=== PATIENT | female | born 1940 | race Caucasian/White ===

== ENCOUNTER 2016-11-15 09:11 | Observation (INO) ==
[2016-11-15] MEDS ORDERED: Aspirin 81 MG TAB.CHEW PO ONE (09:33)
--- NOTE | 2016-11-15 09:47 | Emergency Department Note ---
Disposition Clinical Impression: Chest pain Disposition: Admitted As Inpatient Chest Pain HPI - General Chief Complaint: ED Chest Pain Stated Complaint: Chest Pain Time Seen by Provider: 11/15/16 09:17 Vital Signs Reviewed: Yes Nursing Notes Reviewed: Yes - History of Present Illness HPI Narrative: Mrs. Colon, a 75-year-old female, presents from home by POV with chief complaint of chest pain and left axillary pain. Patient is status post CABG in 2003. Both pains onset Saturday and intermittent. Last seen in unknown duration and spontaneously resolving. Patient states she has tenderness in her left axilla which is reproducible palpation. She also has a substernal chest heaviness onset Saturday and intermittant with radiation to her back, associated with nausea. No change with exertion. Her chest pain has fully resolves and she is chest pain-free on presentation. She is concerned given her cardiac history. Her previous TX which resulted in CABG she had similar chest pressure with radiation to her left arm. Patient's last stress test and echo was last year reportedly normal per patient. Patient is only anti-platelet is aspirin 81 mg by mouth daily. Patient denies dyspnea, diaphoresis, palpitations, weakness, numbness, tingling , vertigo. PMH: HTN, HLD, CABG 1997 and 2003. Service Delivery Supervisor: Dr. Trujillo. Echo 06/24/2015: LVEF 40-45%. Severity scale (1-10): 0 - Related Data Home Medications Medication Instructions Recorded Confirmed Amlodipine [Norvasc] 5 mg PO DAILY 11/15/16 11/15/16 Aspirin 81 mg PO DAILY 11/15/16 11/15/16 Calcium Carbonate/Vitamin D3 1 each PO DAILY 11/15/16 11/15/16 [Calcium 500+D Tablet Chew] Furosemide [Lasix] 40 mg PO DAILY 11/15/16 11/15/16 Losartan [Cozaar] 25 mg PO DAILY 11/15/16 11/15/16 Metoprolol [Lopressor] 100 mg PO BID 11/15/16 11/15/16 [place]-3/Dha/Epa/Fish Oil [Fish Oil 1 each PO DAILY 11/15/16 11/15/16 1,000 mg Softgel] Omeprazole 20 mg PO DAILY 11/15/16 11/15/16 Simvastatin [Zocor] 20 mg PO HS 11/15/16 11/15/16 Allergies Allergy/AdvReac Type Severity Reaction Status Date / Time No Known Allergies Allergy Verified 11/15/16 09:19 All systems ED: reviewed and negative except as stated. Constitutional: Denies: fever, chills, weakness Eyes: Denies: vision change ENT ED: Reports: congestion Cardiovascular: Reports: chest pain. Denies: palpitations, dyspnea on exertion , orthopnea, edema, syncope Respiratory: Denies: cough, dyspnea, wheezes Gastrointestinal: Denies: abdominal pain, nausea, vomiting, diarrhea, constipation Genitourinary: Denies: urgency, dysuria, frequency Musculoskeletal: Denies: back pain, neck pain Neurological: Denies: headache, weakness, numbness, paresthesias, confusion, vertigo Hematological/Lymphatic: Denies: easy bleeding, easy bruising Chest Pain PMH - Past Medical History Medical history: Reports: GERD, hyperlipidemia, myocardial infarction Psychiatric history: Reports: no psych history REAL ESTATE PROCESSOR history: Reports: no REAL ESTATE PROCESSOR history - Social History Smoking Status: Never smoker Alcohol use: Reports: none Drug use: Reports: none Physical Exam General: Patient is alert, oriented, and in no acute distress. HEENT: No facial asymmetry. Head is normocephalic and atraumatic. Trachea midline. Oral mucosa moist. Cardiovascular: Heart regular rate and rhythm without clicks, rubs, gallops, or murmurs. No JVD. PMI nondisplaced. Respiratory: Symmetric chest rise with good respiratory effort. Bilateral breath sounds are clear without wheezing, crackles, or rhonchi. Abdomen: Bowel sounds present normoactive x-4 quadrants. Abdomen is soft, nondistended, and nontender. No organomegaly noted. Musculoskeletal: No parasternal reproducible pain. Pain along the course of the left pectoralis minor which reproduces the patient's axillary pain. Psych: Patient's affect is appropriate for situation. Course Course Narrative: Clinically believe there is a musculoskeletal cause of the patient's left axillary pain is exactly reproduced to palpation along the pectoralis minor. Of greater concern, is the patient's substernal chest heaviness radiation to her back. Patient is unsure if the nausea because of the left axillary pain or the substernal chest heaviness. Patient's heart scores 5. Patient's VENANCIO score is 5. Patient's troponin is negative. Blood work otherwise unremarkable. Patient remains high risk given her cardiac history as well as comorbidities. Spoke with the on-call hospitalist, Dr. Syed, who agrees to accept the patient for chest pain with ACS rule out. Vital Signs Temperature 97.4 F L 11/15/16 09:19 Pulse Rate 59 11/15/16 09:19 Respiratory Rate 24 11/15/16 09:19 Blood Pressure 164/68 11/15/16 09:19 O2 Sat by Pulse Oximetry 97 11/15/16 09:19 Temperature 97.4 F L 11/15/16 09:19 Pulse Rate 54 11/15/16 10:07 Respiratory Rate 22 11/15/16 11:04 Blood Pressure 165/65 11/15/16 11:04 O2 Sat by Pulse Oximetry 96 11/15/16 10:07 Oxygen Delivery Oxygen Delivery Room Air Chest Pain - Medical Records Medical records reviewed: Yes I reviewed the patient's medical records. - Lab Data Lab results reviewed: Yes I reviewed the patient's lab results. Result diagrams: 11/15/16 10:00 11/15/16 10:00 Lab Results 11/15/16 11/15/16 11/15/16 Range/Units 10:00 10:00 10:00 WBC 7.8 (4.3-11.1) K/mcL RBC 4.12 (3.82-4.97) M/mcL Hgb 13.0 (11.5-15.4) g/dL Hct 39.2 (35.3-44.9) % MCV 95.1 (83.0-100.0) fL MCH 31.6 (28.0-33.3) pg MCHC 33.2 (31.6-35.5) g/dL RDW 12.8 (11.5-14.5) % Plt Count 159 (140-400) K/mcL MPV 10.6 (9.4-12.4) fL Immature Gran % 0.3 (0-4) % Seg Neutrophils % 69.2 % Lymphocytes % 22.5 % Monocytes % 6.8 % Eosinophils % 0.9 % Basophils % 0.3 % Neutrophils # 5.4 (1.6-8.9) K/mcL Lymphocytes # 1.7 (0.6-4.6) K/mcL Monocytes # 0.5 (0.0-1.3) K/mcL Eosinophils # 0.1 (0.0-0.6) K/mcL Basophils # 0.0 (0.0-0.2) K/mcL Sodium 141 (136-145) mEq/L Potassium 4.1 (3.5-4.5) mEq/L Chloride 107 (98-109) mEq/L Carbon Dioxide 26 (19-29) mEq/L BUN 22 H (7-20) mg/dL Creatinine 0.93 (0.57-1.11) mg/dL Est GFR ( Amer) > 60 (> 60) Est GFR (Non-Af Amer) 59 L (> 60) BUN/Creatinine Ratio 24 (6-26) Glucose 135 H (70-99) mg/dL Calculated Osmolality 297 (280-300) Calcium 9.1 (8.6-10.8) mg/dL Troponin I 0.01 (0-0.03) ng/mL - Radiology Data Radiology results reviewed: Yes I reviewed the patient's radiology results. Chest X-Ray 11/15/16 09:33 IMPRESSION: No acute cardiopulmonary disease. D/ / Ferdinand Corona MD / Ferdinand Corona MD Interpreting Provider: Ferdinand Corona MD - EKG Data EKG attestation: Yes I reviewed and interpreted this EKG. EKG results narrative: EKG dated 11/15/16 interpreted as sinus bradycardia with a rate of 59. Normal intervals with ID 183, QRS 159, QT/QTc 450/448. Left axis. Left bundle branch block. T-wave inversions in aVL, V5, and V6. Otherwise nonspecific ST-T changes. Compared to previous dated 05/23/2004 showing no T-wave inversions in aVL, V5, V6. Old EKG does show T-wave inversions in V1 through 4. Compared to previous EKG 28 August 2015 shows no acute ischemic changes. Heart Score - Score History: Slightly Suspicious EKG: Non Specific repolarisation Disturbance Age: Greater than 65 Risk Factors: Equal/Greater than 3 risk factor or history of atherosclerotic disease Troponin: Less than normal limit HEART Score Total: 5 Attestation Statement - Attestation Attestation: I examined this patient and my medical decision-making was reviewed with the CIGARETTE TESTER/PA/Advanced Practice Nurse/Resident Physician. I agree with the documented findings, disposition and treatment plan as described except to the extent set forth below. 75-year-old female presents the ED because of chest pain. She has remote history of coronary disease and had CABG in 2003. She now complains of several days of recurring substernal chest tightness with radiation to her left scapula and associated nausea and diaphoresis. No fevers, chills or rigors. No specific exertional provocation of symptoms. She does note generalized exertional limitations with extreme fatigue with any activity over the past several weeks. She does complain of slight nonproductive cough. No orthopnea. No worsening of her baseline extremity swelling. Pleasant elderly female in no apparent distress. She is talkative and interactive. Oropharynx is clear and mucous membranes moist. Neck supple. Chest clear to auscultation bilateral. Cardiac exam regular chest wall nontender. Abdomen soft nondistended and nontender to palpation extremities warm and dry with bilateral 1+ pitting edema. EKG with left bundle branch block similar to previous tracing. Initial emergency room workup was unremarkable. Case discussed with on-call hospitalist who will admit for further workup.
[2016-11-15 10:12] LABS: Basophils % 0.3 %; Eosinophils # 0.1 K/mcL (0.0-0.6); Eosinophils % 0.9 %; Hematocrit 39.2 % (35.3-44.9); Immature Granulocytes % 0.3 % (0-4); Lymphocytes # 1.7 K/mcL (0.6-4.6); Lymphocytes % 22.5 %; Mean Corpuscular HGB Conc 33.2 g/dL (31.6-35.5); Mean Corpuscular Hemoglobin 31.6 pg (28.0-33.3); Mean Corpuscular Volume 95.1 fL (83.0-100.0); Mean Platelet Volume 10.6 fL (9.4-12.4); Monocytes # 0.5 K/mcL (0.0-1.3); Monocytes % 6.8 %; Neutrophils # 5.4 K/mcL (1.6-8.9); Platelet Count 159 K/mcL (140-400); Red Blood Count 4.12 M/mcL (3.82-4.97); Red Cell Distribution Width 12.8 % (11.5-14.5); Segmented Neutrophils % 69.2 %
[2016-11-15 10:21] LABS: BUN/Creatinine Ratio 24 (6-26); Blood Urea Nitrogen 22 mg/dL (7-20); Calcium 9.1 mg/dL (8.6-10.8); Carbon Dioxide 26 mEq/L (19-29); Chloride 107 mEq/L (98-109); Glucose 135 mg/dL (70-99); Osmolality,Calculated 297 (280-300); Potassium 4.1 mEq/L (3.5-4.5); Sodium 141 mEq/L (136-145); eGFR For African Americans > 60 (> 60); eGFR For Non-African Americans 59 (> 60)
[2016-11-15] MEDS ORDERED: Naloxone 0.4 MG/ML INJ IVP PRN (10:29)
--- NOTE | 2016-11-15 10:48 | Internal Med History&Physical ---
Date of Encounter: 11/15/16 Time of Encounter: 10:43 Assessment and Plan (1) Chest pain Current visit: Yes Status: Acute Chest pain: Cardiac history: Echocardiogram: June 2015: Ejection fraction 40-45%, moderate mitral regurgitation. Stress test: November 2014: No reversible ischemia. Gaited ejection fraction 45% Cardiac catheterization : 2003 CABG: Initial 1997, nonfunctional [place]: 2003 Plan -Admitted as observation. -Diabetic diet. -ASA/BB/Statin - Echocardiogram -Pain control with morphine -We will resume home medication -If echocardiogram is normal then please consider stress test -If echocardiogram is abnormal and his consider cardiology evaluation Qualifiers: Chest pain type: chest pain on breathing Qualified Code(s): R07.1 - Chest pain on breathing (2) Prediabetes Current visit: Yes Status: Acute Laboratory data patient's last hemoglobin A1c was 6.2. We will observe her blood sugar. We will not start any medication at this point. (3) Hypertension Current visit: Yes Status: Acute Patient is known to have hypertension. We will resume her home medications. Qualifiers: Hypertension type: essential hypertension Qualified Code(s): I10 - Essential (primary) hypertension (4) Chronic kidney disease (CKD) Current visit: Yes Status: Acute She is a moderate stage III chronic kidney disease. We will have a close observation. Qualifiers: Chronic kidney disease stage: stage 3 (moderate) Qualified Code(s): N18.3 - Chronic kidney disease, stage 3 (moderate) (5) DVT prophylaxis Current visit: Yes Status: Acute Heparin Medical decision making: This patient has a [id number] risk of worsening cardiac function in spite of being on appropriate treatment. Internal Medicine - H&P: HPI Chief complaint: Chest pain Admitted From: Emergency Dept Plans for Post Hospital Care: Home History of present illness: PCP: [facility] : Dr Trujillo. Brief past medical history: Patient is a coronary artery disease, prediabetes, GERD, CKD, cardiomyopathy, systolic CHF, previous CABG History of present illness: The patient has ongoing chest pain for more than 2 weeks. Patient tried home remedies. It did not help her. Patient was complaining that in as 48 hours of chest pain was getting worse. Patient has a chest pain and left precordial region. It is nonradiating, localized, persistent, sharp, associated with deep breathing and reviewed by rest. Patient also complains of left shoulder pain. Patient denies nausea, vomiting, abdominal pain, diarrhea or dizziness. The persistent chest pain brought her to the emergency department for further workup Emergency room workup: Patient was evaluated in the emergency room. She underwent basic workup. Her troponins were negative. Her EKG shows left bundle branch block. This is not a new left bundle branch block. Patient has a ongoing persistent pain in the emergency room. Reason for admission: Chest pain in a CAD patient to rule out ACS Family history: Noncontributory Past Med Surg Social Fam HX - Past Medical History Medical history: GERD, hyperlipidemia, myocardial infarction Psychiatric history: no psych history - Social History Smoking Status: Never smoker Smokeless Tobacco Status: No Alcohol use: none Drug use: none Internal Medicine - H&P: Meds Amlodipine [Norvasc] 5 mg PO DAILY 11/15/16 [History] Aspirin 81 mg PO DAILY 11/15/16 [History] Calcium Carbonate/Vitamin D3 [Calcium 500+D Tablet Chew] 1 each PO DAILY [History] Furosemide [Lasix] 40 mg PO DAILY 11/15/16 [History] Losartan [Cozaar] 25 mg PO DAILY 11/15/16 [History] Metoprolol [Lopressor] 100 mg PO BID 11/15/16 [History] [place]-3/Dha/Epa/Fish Oil [Fish Oil 1,000 mg Softgel] 1 each PO DAILY 11/15/16 [ History] Omeprazole 20 mg PO DAILY 11/15/16 [History] Simvastatin [Zocor] 20 mg PO HS 11/15/16 [History] Allergies No Known Allergies Allergy (Verified 11/15/16 09:19) All Systems PM: A 10-system review of systems was performed and is negative for pertinent findings except as documented above in the HPI. - Constitutional Constitutional: no chills, no fever(s), no night sweats - EENT Eyes: no change in vision, no discharge, no pain, no photophobia Ears: no ear discharge, no ear pain, no tinnitus Nose, mouth and throat: no dysphagia, no nasal discharge, no neck pain, no sore throat - Cardiovascular Cardiovascular ROS IM: chest pain, dyspnea, no diaphoresis, no lightheadedness, no palpitations, no syncope - Respiratory Respiratory: no cough, no dyspnea, no wheezing, no excessive phlegm production - Gastrointestinal Gastrointestinal: no abdominal pain, no diarrhea, no hematemesis, no hematochezia, no melena, no nausea, no vomiting - Genitourinary Genitourinary: no change in urinary stream, no dysuria, no flank pain, no hematuria - Musculoskeletal Musculoskeletal ROS IM: no numbness, no tingling - Integumentary Integumentary IM: no rash, no unusual bruising - Neurological Neurological ROS: no confusion, no convulsions, no focal weakness, no numbness, no tingling, no tremor(s) - Hematologic/Lymphatic Hematologic/Lymphatic: no easy bruising - Constitutional Vitals: Temp Pulse Resp BP Pulse Ox 97.4 F L 54 24 156/59 96 11/15/16 09:19 11/15/16 10:07 11/15/16 09:42 11/15/16 10:07 11/15/16 10:07 General appearance: Present: A&O X 3, pleasant, no acute distress, answers questions appropriately - Head Head exam: Present: atraumatic, normocephalic - Eye Eye exam: Present: PERRL, conjuntiva pink, sclera anicteric Pupils: Present: PERRL - Neck Neck exam general surgery: Present: supple, trachea midline. Absent: lymphadenopathy - Respiratory Respiratory exam: Present: CTAB. Absent: accessory muscle use, rales, rhonchi, wheezes - Cardiovascular Cardiovascular exam: Present: RRR, +S1, +S2. Absent: diastolic murmur, gallop, rubs, systolic murmur - GI/Abdominal GI/Abdominal exam: Present: normal bowel sounds, soft, no peritoneal signs. Absent: distended, tenderness - Extremities Exam Extremities exam: Present: warm, radial pulses palpable and symetrical. Absent : calf tenderness, cyanotic, pedal edema - Neurological Exam Neurological exam: Present: CN II-XII intact, oriented X3, no focal deficits. Absent: pronater drift, facial droop, speech deficit - Skin Skin exam: Present: dry, intact Internal Med - H&P Results - Labs CBC & Chem 7: 11/15/16 10:00 11/15/16 10:00 Labs: Short CBC 11/15/16 Range/Units 10:00 WBC 7.8 (4.3-11.1) K/mcL Hgb 13.0 (11.5-15.4) g/dL Hct 39.2 (35.3-44.9) % Plt Count 159 (140-400) K/mcL Neutrophils # 5.4 (1.6-8.9) K/mcL BMP 11/15/16 10:00 Sodium 141 Potassium 4.1 Chloride 107 Carbon Dioxide 26 BUN 22 H Creatinine 0.93 Glucose 135 H Calcium 9.1 Cardiac Enzymes 11/15/16 Range/Units 10:00 Troponin I 0.01 (0-0.03) ng/mL Case discussed with the emergency room physician. - Impressions ITS Impressions Chest X-Ray 11/15/16 09:33 IMPRESSION: No acute cardiopulmonary disease. D/ / Ferdinand Corona MD / Ferdinand Corona MD Interpreting Provider: Ferdinand Corona MD
[2016-11-15] MEDS: Metoprolol 100 MG TABLET PO SCH (12:56)
[2016-11-15] MEDS: Furosemide 40 MG TABLET PO SCH (12:58)
[2016-11-15 15:06] LABS: Bilirubin,Urine Negative (Negative); Blood,Urine Trace (Negative); Clarity,Urine Clear (Clear); Color,Urine Yellow (Yellow); Glucose,Urine (UA) Normal (Normal); Ketones,Urine Negative (Negative); Leukocyte Esterase,Urine Negative (Negative); Nitrite,Urine Negative (Negative); Protein,Urine Negative (Neg-Trace); Specific Gravity,Urine 1.016 (1.010-1.025); Urobilinogen,Urine Normal (Normal)
[2016-11-15 15:09] LABS: Bacteria,Urine Few per hpf (None-Few); Hyaline Casts,Urine None Seen per lpf (None-Few); RBC,Urine 0-3 per hpf (0-3); Squamous Epithelial Cell,Urine Many per lpf (None-Few); WBC,Urine 0-3 per hpf (0-3)
[2016-11-15] MEDS: Acetaminophen 325 MG TABLET PO PRN ×2 (15:09→21:23)
[2016-11-15] MEDS ORDERED: Perflutren Lipid Microsphere 1.3 ML in 0.9 % Sodium Chloride 8.7 ML IVP ONE (20:27)
[2016-11-16] MEDS: Metoprolol 100 MG TABLET PO SCH ×2 (00:04→09:10)
[2016-11-16 05:33] LABS: Basophils % 0.5 %; Eosinophils # 0.1 K/mcL (0.0-0.6); Eosinophils % 1.8 %; Hematocrit 38.1 % (35.3-44.9); Hemoglobin 12.7 g/dL (11.5-15.4); Immature Granulocytes % 0.4 % (0-4); Lymphocytes # 2.9 K/mcL (0.6-4.6); Lymphocytes % 37.8 %; Mean Corpuscular HGB Conc 33.3 g/dL (31.6-35.5); Mean Corpuscular Hemoglobin 31.7 pg (28.0-33.3); Monocytes # 0.7 K/mcL (0.0-1.3); Monocytes % 9.6 %; Neutrophils # 3.8 K/mcL (1.6-8.9); Platelet Count 174 K/mcL (140-400); Red Blood Count 4.01 M/mcL (3.82-4.97); Segmented Neutrophils % 49.9 %
[2016-11-16 05:46] LABS: Alanine Aminotransferase 13 Units/L (0-55); Albumin 3.5 g/dL (3.5-5.0); Albumin/Globulin Ratio 0.9 (1.1-2.2); Alkaline Phosphatase 63 Units/L (38-126); Aspartate Amino Transferase 15 Units/L (5-34); BUN/Creatinine Ratio 18 (6-26); Bilirubin,Total 0.5 mg/dL (0.2-1.2); Blood Urea Nitrogen 19 mg/dL (7-20); Carbon Dioxide 28 mEq/L (19-29); Chloride 107 mEq/L (98-109); Chol/HDL Ratio 2.9 (0-4.9); Cholesterol 132 mg/dL (< 200); Globulin 3.8 g/dL (2.4-3.5); Glucose 99 mg/dL (70-99); HDL Cholesterol 45 mg/dL (40-59); LDL Cholesterol,Calculated 68 mg/dL (0-99); Magnesium 1.9 mg/dL (1.6-2.6); Osmolality,Calculated 302 (280-300); Phosphorous 3.7 mg/dL (2.3-4.7); Potassium 4.3 mEq/L (3.5-4.5); Sodium 145 mEq/L (136-145); Total Protein 7.3 g/dL (6.0-8.3); Triglycerides 96 mg/dL (< 150); eGFR For African Americans > 60 (> 60); eGFR For Non-African Americans 52 (> 60)
[2016-11-16] MEDS ORDERED: amLODIPine 5 MG TABLET PO SCH (09:00)
[2016-11-16] MEDS ORDERED: Aspirin Enteric Coated 81 MG Tablet PO SCH (09:00)
[2016-11-16] MEDS ORDERED: Cholecalciferol (D-3) 1,000 UNIT TABLET PO SCH (09:00)
[2016-11-16] MEDS: Furosemide 40 MG TABLET PO SCH (09:10)
--- NOTE | 2016-11-16 10:56 | ECHO - Doppler Report ---
Echo with Imaging Enhancement Agent Name: Radha Colon Date of Study: 11/15/2016 Date: 1940 Ht: 66.0 in Medical Record#: [id number] Age: 75 Wt: 215.0 lb Gender: Female BSA: 2.06 Order #: [id number] Location: [facility] Room #: [id number] Reading Physician: Nadeem Garcia DO, [facility] Distribution Driver: Nikki Lezama Ordering Physician: Johnathon Syed MD Primary Physician: Chrystal Scott CNP Indications: Chest pain Impressions: LVEF 45%. Mildly dilated left ventricle. Segmental left ventricular systolic dysfunction. Mild left ventricular diastolic dysfunction. Atypical septal motion consistent with bundle branch block. Normal right ventricular structure and function. Moderately dilated left atrium. Mild tricuspid regurgitation. Mild pulmonary hypertension. Estimated RVSP is 37 mmHg. Left Ventricular Wall Motion: Rest Echo Findings The apex, apical inferior and apical septal otero were hypokinetic. All other wall segments showed normal motion. Findings: Study Quality * Technically adequate exam. ECG Findings * Sinus bradycardia with a bundle branch block. Left Ventricle * LVEF 45%. * Mildly dilated left ventricle. * Segmental left ventricular systolic dysfunction. * Mild left ventricular diastolic dysfunction. * Atypical septal motion consistent with bundle branch block. Right Ventricle * Normal right ventricular structure and function. Left Atrium * Moderately dilated left atrium. Right Atrium * Mildly dilated right atrium. Interatrial Septum * Interatrial septum not well evaluated. Aortic Valve * Aortic valve not well visualized. * No aortic regurgitation. * No aortic stenosis. Mitral Valve * Mild mitral annular calcification * Trace mitral regurgitation. * No mitral stenosis. Tricuspid Valve * Normal tricuspid valve structure. * Mild tricuspid regurgitation. * Mild pulmonary hypertension. * Estimated RVSP is 37 mmHg. * Estimated RA pressure is 5 mmHg. Pulmonic Valve * Normal pulmonic valve structure and function. * No pulmonic regurgitation. Aorta * Normally sized aortic root. Pericardium * The pericardium appears normal. IVC * Normal IVC dimensions and inspiratory collapse. History Hypertension Hypercholesteremia Family History of CAD History of CAD/PTCA Myocardial Infarction Coronary Artery Bypass Graft Congestive Heart Failure 06/24/2015 a Previous Echo was performed. Contrast: Definity 1.3 ml in 8.7 ml of saline 2 ml. Measurements: BP: 120/ 63 2D Normal Values RVIDd: 1.90 cm <2.7 cm IVSd: .70 cm 0.6 - 1.0 cm LVIDd: 5.80 cm 3.7 - 5.6 cm LVPWd: 1.00 cm 0.6 - 1.1 cm LVIDs: 4.00 cm 1.5 - 3.6 cm AO: 2.50 cm < 4.0 cm LA: 4.80 cm 2.0 - 4.0cm %FS: 34.40 cm >25 % LA volume: 63 Mitral Valve Peak E:.64 m/sec Peak A:.65 m/sec E/A Ratio:1 Peak E' Lat Isiah:7.8 cm/s Peak E' Med Isiah:5.56 cm/s E/E' Lat Ratio:8.2 E/E' Med Ratio:11.5 Tricuspid Valve TV Regurg Peak Grad: 32.00mmHg TV Regurg Peak Isiah: 2.85m/sec Updated by Nadeem Garcia DO, TAI, MILDRED ABURTO on 11/16/2016 10:49:41 AM electronically signed on 11/16/2016 10:50:30 AM with status of Final Wall Motion [place]: 1=Normal, 2=Hypokinesis, 3=Akinesis, 4=Dyskinesis, 5=Aneurysmal, 6=Hyperkinetic, X=Not Visualized (Blank)=Missing
[2016-11-16 10:57] VITALS: BP 144/68
--- NOTE | 2016-11-16 12:24 | Discharge Summary ---
Date of Encounter: 11/16/16 Time of Encounter: 12:21 - Discharge Diagnosis (1) Chest pain Priority: Primary Status: Resolved Qualifiers: Chest pain type: unspecified Qualified Code(s): R07.9 - Chest pain, unspecified (2) Chronic kidney disease (CKD) Priority: Secondary Status: Acute Qualifiers: Chronic kidney disease stage: stage 3 (moderate) Qualified Code(s): N18.3 - Chronic kidney disease, stage 3 (moderate) (3) DVT prophylaxis Priority: Secondary Status: Acute (4) Hypertension Priority: Secondary Status: Chronic Qualifiers: Hypertension type: essential hypertension Qualified Code(s): I10 - Essential (primary) hypertension (5) Prediabetes Priority: Secondary Status: Chronic - Discharge Medications Prescriptions: Nitroglycerin 0.4 mg SL Q5M PRN #20 tab.subl PRN Reason: Chest Pain Home Medications: Amlodipine [Norvasc] 5 mg PO DAILY 11/15/16 [History] Aspirin 81 mg PO DAILY 11/15/16 [History] Calcium Carbonate/Vitamin D3 [Calcium 500+D Tablet Chew] 1 each PO DAILY [History] Furosemide [Lasix] 40 mg PO DAILY 11/15/16 [History] Losartan [Cozaar] 25 mg PO DAILY 11/15/16 [History] Metoprolol [Lopressor] 100 mg PO BID 11/15/16 [History] Barnhart-3/Dha/Epa/Fish Oil [Fish Oil 1,000 mg Softgel] 1 each PO DAILY 11/15/16 [ History] Omeprazole 20 mg PO DAILY 11/15/16 [History] Simvastatin [Zocor] 20 mg PO HS 11/15/16 [History] Nitroglycerin 0.4 mg SL Q5M PRN #20 tab.subl 11/16/16 [Rx] Allergies/Adverse Reactions: Allergies No Known Allergies Allergy (Verified 11/15/16 09:19) Date of admission: 11/15/16 10:51 Primary care physician: Chrystal Scott CNP Consults: 11/15/16 12:52 Consult to Personal Care Worker [CONS] Routine Reason for SW Consult: patient is concerned with financial options due to having medicare and [employer] but still gets a hospital bill. she was wanting to talk about her options. She lives at home alone with no services provided. 11/16/16 12:01 Consult to Cardiology [CONS] Routine Comment: Consulting Provider: Cardiology Stephanie Reason for Consult: chest pain Call Completed: Yes Discharging clinician: Re Garcia Anticipated date of discharge: 11/16/16 - Patient Status Disposition: Home, Self-Care Condition: Good Functional capacity at discharge: independent ambulation Overall status at discharge: patient is back to baseline - Discharge Instructions Follow Up With: Chrystal Scott CNP [Primary Care Provider] - 11/21/16 3:30 pm Additional Instructions: Please follow up with your coin machine servicer repairer and primary care physician within one week after your discharge from the hospital. You are given prescription for Nitroglycerin 0.4mg SL as needed for chest pain. If you have chest pain and need to use this medication, please seek medical help immediately. You were also noted to have your HbA1C of 6.2 which is in the prediabetic range. Please inform your primary care physician of this change. Please resume all your home medications as prescribed by your primary care physician. - Diet and Activity Activity: resume usual activities as tolerated Diet: diabetic diet Hospital course: Ms. Colon is a 76 year old female with PMH of CAD, s/p [place] In 2003, GERD, CKD , cardiomyopathy, systolic CHF, and prediabetes who was admitted for evaluation of chest pain. Patient stated that she had this localized left sided chest pain for the last two weeks which worsened over the last two days which prompted her visit to the ER. She states the pain was occuring at rest and would be relieved abruptly. States that this pain was different from the chest pain she experienced during her prior [place]. She had a 2D echo which showed EF of 45% which is unchanged from her prior echo. Her serial troponins were negative and patient is told that she would benefit from a pharmacological stress test. She is adamant about leaving the hospital today but states she will follow up with her coin machine servicer repairer (Dr. Trujillo) as outpatient. She reports of complete resolution of her chest pain at this time and denies any other symptoms at this time. She will be discharged to home with follow up with cardiology and PCP after discharge. Patient demonstrates understanding of her diagnosis and understands the risk associated with no getting a stress test this visit, she acknowledges understanding of her discharge diagnosis and plan. - Time Spent with Patient Total time spent providing and/or coordinating discharge services: Less than 30 minutes - Constitutional Vitals: Temp Pulse Resp BP Pulse Ox 97.5 F L 53 18 144/68 96 11/16/16 10:55 11/16/16 10:55 11/16/16 10:55 11/16/16 10:55 11/16/16 10:55 General appearance: Present: A&O X 3, pleasant, no acute distress, obese, answers questions appropriately - Head Head exam: Present: atraumatic, normocephalic - Eye Eye exam: Present: conjuntiva pink, sclera anicteric - Respiratory Respiratory exam: Present: CTAB. Absent: respiratory distress, wheezes - Cardiovascular Cardiovascular exam: Present: RRR, +S1, +S2. Absent: diastolic murmur, systolic murmur - GI/Abdominal GI/Abdominal exam: Present: normal bowel sounds, soft. Absent: distended, tenderness - Extremities Exam Extremities exam: Present: warm, radial pulses palpable and symetrical. Absent : calf tenderness, pedal edema, tenderness - Neurological Exam Neurological exam: Present: alert, oriented X3, no focal deficits - Psychiatric Psychiatric exam: Present: normal affect, normal mood
--- NOTE | 2016-11-16 17:11 | Electrocardiograph Report ---
[address] [address] Test Date: 2016-11-15 Pat Name: Radha Colon Department: 103 Room: 3B24 Gender: F Gse Mechanic: : 1940 Requested By: Alexis Carroll Order Number: [id number] Reading MD: Chrystal Munoz Measurements Intervals [place] Rate: 59 P: 50 MN: 183 QRS: 36 QRSD: 159 T: 161 QT: 450 QTc: 448 Interpretive Statements SINUS BRADYCARDIA WITH SINUS ARRHYTHMIA LEFT BUNDLE BRANCH BLOCK Electronically Signed On 11-16-2016 17:10:07 EST by Chrystal Munoz
== END 2016-11-16 13:18 | disposition home or self-care (01) ==
LOC: 3BNU 09:11 → EMEROO 09:11 → 3BNU 11:10
PROVIDERS: ADMIT Internal Medicine; ATTEND Nurse Practitioner Family

== ENCOUNTER 2019-10-05 18:06 | Observation (INO) ==
[2019-10-05] MEDS ORDERED: Isovue-370 500 ML BOTTLE IVP ONE ×2 (18:52→19:32)
[2019-10-05 19:29] LABS: Basophils % 0.5 %; Eosinophils # 0.1 K/mcL (0.0-0.6); Eosinophils % 0.7 %; Hematocrit 37.9 % (35.3-44.9); Hemoglobin 12.3 g/dL (11.5-15.4); Immature Granulocytes % 0.1 % (0-4); Lymphocytes # 1.8 K/mcL (0.6-4.6); Lymphocytes % 23.7 %; Mean Corpuscular HGB Conc 32.5 g/dL (31.6-35.5); Mean Corpuscular Hemoglobin 32.6 pg (28.0-33.3); Mean Corpuscular Volume 100.5 fL (83.0-100.0); Mean Platelet Volume 10.4 fL (9.4-12.4); Monocytes # 0.7 K/mcL (0.0-1.3); Monocytes % 9.5 %; Platelet Count 166 K/mcL (140-400); Red Blood Count 3.77 M/mcL (3.82-4.97); Red Cell Distribution Width 12.7 % (11.5-14.5); Segmented Neutrophils % 65.5 %; White Blood Count 7.7 K/mcL (4.3-11.1)
[2019-10-05 19:52] LABS: Alanine Aminotransferase 10 Units/L (7-52); Albumin/Globulin Ratio 1.4 (1.1-2.2); Alkaline Phosphatase 56 Units/L (34-104); Aspartate Amino Transferase 15 Units/L (13-39); BUN/Creatinine Ratio 17 (6-26); Bilirubin,Direct 0.2 mg/dL (0.0-0.2); Bilirubin,Indirect 0.2 mg/dL (0.0-1.0); Bilirubin,Total 0.4 mg/dL (0.3-1.0); Blood Urea Nitrogen 20 mg/dL (8-23); Calcium 9.3 mg/dL (8.6-10.3); Carbon Dioxide 30 mEq/L (23-29); Chloride 103 mEq/L (98-107); Globulin 2.9 g/dL (2.4-3.5); Glucose 121 mg/dL (70-105); Osmolality,Calculated 292 (280-300); Potassium 4.4 mEq/L (3.5-5.1); Sodium 139 mEq/L (136-145); Total Protein 6.9 g/dL (6.4-8.9); Troponin I < 0.03 ng/mL (< 0.04); eGFR For African Americans 55 (> 60); eGFR For Non-African Americans 46 (> 60)
[2019-10-05] MEDS ORDERED: Naloxone 0.4 MG/ML INJ IVP PRN (23:30)
[2019-10-05] MEDS ORDERED: Ondansetron 4 MG/2 ML VIAL IVP PRN (23:30)
[2019-10-05] MEDS ORDERED: Acetaminophen 325 MG TABLET PO PRN (23:30)
[2019-10-05] MEDS ORDERED: Furosemide 40 MG TABLET PO PRN (23:33)
[2019-10-06 02:01] LABS: Basophils % 0.4 %; Eosinophils # 0.1 K/mcL (0.0-0.6); Eosinophils % 1.3 %; Hematocrit 36.8 % (35.3-44.9); Hemoglobin 11.8 g/dL (11.5-15.4); Immature Granulocytes % 0.1 % (0-4); Lymphocytes # 2.2 K/mcL (0.6-4.6); Lymphocytes % 31.1 %; Mean Corpuscular HGB Conc 32.1 g/dL (31.6-35.5); Mean Corpuscular Volume 99.7 fL (83.0-100.0); Mean Platelet Volume 10.8 fL (9.4-12.4); Monocytes # 0.7 K/mcL (0.0-1.3); Monocytes % 10.5 %; Platelet Count 169 K/mcL (140-400); Red Blood Count 3.69 M/mcL (3.82-4.97); Red Cell Distribution Width 12.7 % (11.5-14.5); Segmented Neutrophils % 56.6 %; White Blood Count 7.1 K/mcL (4.3-11.1)
[2019-10-06 02:19] LABS: BUN/Creatinine Ratio 18 (6-26); Blood Urea Nitrogen 18 mg/dL (8-23); Calcium 9.1 mg/dL (8.6-10.3); Carbon Dioxide 30 mEq/L (23-29); Chloride 105 mEq/L (98-107); Chol/HDL Ratio 2.4 (0-4.9); Cholesterol 121 mg/dL (< 200); Glucose 93 mg/dL (70-105); HDL Cholesterol 50 mg/dL (40-59); LDL Cholesterol,Calculated 59 mg/dL (0-99); Osmolality,Calculated 294 (280-300); Phosphorous 3.7 mg/dL (2.7-4.5); Potassium 4.5 mEq/L (3.5-5.1); Sodium 141 mEq/L (136-145); Triglycerides 62 mg/dL (< 150); eGFR For African Americans > 60 (> 60); eGFR For Non-African Americans 53 (> 60)
[2019-10-06] MEDS: *HR* Heparin 5,000 UNIT/ML VIAL SQ SCH ×3 (04:29→21:52)
[2019-10-06] MEDS ORDERED: Perflutren Lipid Microsphere 1.3 ML in 0.9 % Sodium Chloride 8.7 ML IVP ONE (08:17)
[2019-10-06] MEDS ORDERED: Aspirin 81 MG TAB.CHEW PO SCH (09:00)
[2019-10-06] MEDS ORDERED: Isosorbide MONOnitrate (24 HR) 30 MG TAB.ER.24H PO SCH (09:00)
[2019-10-06] MEDS ORDERED: Metoprolol XL (24 HR) Succ 25 MG TAB.ER.24H PO SCH (21:00)
[2019-10-06] MEDS ORDERED: Melatonin 3 MG TABLET PO SCH (21:00)
[2019-10-07] MEDS: *HR* Heparin 5,000 UNIT/ML VIAL SQ SCH (05:04)
[2019-10-07 05:29] LABS: Hemoglobin 12.1 g/dL (11.5-15.4); Mean Corpuscular HGB Conc 32.7 g/dL (31.6-35.5); Mean Corpuscular Hemoglobin 32.8 pg (28.0-33.3); Mean Corpuscular Volume 100.3 fL (83.0-100.0); Mean Platelet Volume 9.9 fL (9.4-12.4); Platelet Count 144 K/mcL (140-400); Red Blood Count 3.69 M/mcL (3.82-4.97); Red Cell Distribution Width 12.6 % (11.5-14.5); White Blood Count 6.7 K/mcL (4.3-11.1)
[2019-10-07 05:46] LABS: BUN/Creatinine Ratio 17 (6-26); Blood Urea Nitrogen 15 mg/dL (8-23); Carbon Dioxide 28 mEq/L (23-29); Chloride 106 mEq/L (98-107); Glucose 113 mg/dL (70-105); Osmolality,Calculated 298 (280-300); Potassium 4.3 mEq/L (3.5-5.1); Sodium 143 mEq/L (136-145); eGFR For African Americans > 60 (> 60); eGFR For Non-African Americans > 60 (> 60)
[2019-10-07 08:03] VITALS: BP 153/73
[2019-10-07] MEDS ORDERED: Metoprolol XL (24 HR) Succ 25 MG TAB.ER.24H PO SCH (09:00)
== END 2019-10-07 10:10 | disposition home or self-care (01) ==
LOC: EMEROOARM 18:06 → 3BNU 18:06
PROVIDERS: ADMIT Student in an Organized Health Care Education/Training Program; ATTEND Student in an Organized Health Care Education/Training Program

== ENCOUNTER 2021-10-27 10:59 | Observation (INO) ==
[2021-10-27 13:20] LABS: Basophils % 0.1 %; Eosinophils # 0.1 K/mcL (0.0-0.6); Eosinophils % 1.1 %; Hematocrit 40.3 % (35.3-44.9); Hemoglobin 13.5 g/dL (11.5-15.4); Immature Granulocytes % 0.3 % (0-4); Lymphocytes # 0.7 K/mcL (0.6-4.6); Lymphocytes % 6.7 %; Mean Corpuscular HGB Conc 33.5 g/dL (31.6-35.5); Mean Corpuscular Hemoglobin 32.6 pg (28.0-33.3); Mean Corpuscular Volume 97.3 fL (83.0-100.0); Mean Platelet Volume 10.8 fL (9.4-12.4); Monocytes # 0.6 K/mcL (0.0-1.3); Monocytes % 5.9 %; Neutrophils # 9.2 K/mcL (1.6-8.9); Platelet Count 152 K/mcL (140-400); Red Blood Count 4.14 M/mcL (3.82-4.97); Red Cell Distribution Width 12.4 % (11.5-14.5); Segmented Neutrophils % 85.9 %; White Blood Count 10.7 K/mcL (4.3-11.1)
[2021-10-27 13:45] LABS: BUN/Creatinine Ratio 22 (6-26); Blood Urea Nitrogen 23 mg/dL (8-23); Calcium 9.2 mg/dL (8.6-10.3); Carbon Dioxide 22 mEq/L (23-29); Chloride 105 mEq/L (98-107); Glucose 122 mg/dL (70-105); Osmolality,Calculated 287 (280-300); Potassium 4.2 mEq/L (3.5-5.1); Sodium 136 mEq/L (136-145); Troponin I < 0.03 ng/mL (< 0.04); eGFR For African Americans > 60 (> 60); eGFR For Non-African Americans 51 (> 60)
[2021-10-27 16:37] LABS: Bacteria,Urine Few per hpf (None-Few); Bilirubin,Urine Negative (Negative); Blood,Urine Trace (Negative); Clarity,Urine Ex.Turbid (Clear); Color,Urine Light-Orange (Yellow); Glucose,Urine (UA) Normal (Normal); Ketones,Urine Trace mg/dL (Negative); Leukocyte Esterase,Urine Negative (Negative); Mucus,Urine Many per lpf (None-Few); Nitrite,Urine Negative (Negative); PH,Urine 5.5 pH Units (5.0-8.0); Protein,Urine 50 mg/dL (Neg-Trace); Specific Gravity,Urine > 1.030 (1.010-1.025); Squamous Epithelial Cell,Urine Few per hpf (None-Few)
[2021-10-27] MEDS ORDERED: Naloxone 0.4 MG/ML INJ IVP PRN (18:11)
[2021-10-27] MEDS ORDERED: Ondansetron ODT 4 MG TAB.RAPDIS SL PRN (18:11)
[2021-10-27] MEDS ORDERED: Acetaminophen 325 MG TABLET PO PRN (18:11)
[2021-10-27] MEDS ORDERED: Melatonin 3 MG TABLET PO PRN (18:11)
[2021-10-27] MEDS ORDERED: cefTRIAXone 1,000 MG in 0.9 % Sodium Chloride Mini Bag 100 ML IVPB SCH (19:00)
[2021-10-27] MEDS: Thiamine (B-1) 100 MG in 0.9 % Sodium Chloride 50 ML IVPB SCH (22:59)
[2021-10-28 07:02] LABS: Basophils % 0.3 %; Hematocrit 37.4 % (35.3-44.9); Hemoglobin 12.5 g/dL (11.5-15.4); Mean Corpuscular HGB Conc 33.4 g/dL (31.6-35.5); Mean Corpuscular Hemoglobin 32.5 pg (28.0-33.3); Mean Corpuscular Volume 97.1 fL (83.0-100.0); Red Blood Count 3.85 M/mcL (3.82-4.97); Segmented Neutrophils % 72.6 %
[2021-10-28 07:04] LABS: Eosinophils # 0.2 K/mcL (0.0-0.6); Immature Granulocytes % 0.3 % (0-4); Immature Platelets 6.6 % (1.1-6.1); Lymphocytes # 1.1 K/mcL (0.6-4.6); Lymphocytes % 13.9 %; Mean Platelet Volume 11.1 fL (9.4-12.4); Monocytes # 0.8 K/mcL (0.0-1.3); Monocytes % 9.9 %; Neutrophils # 5.6 K/mcL (1.6-8.9); Platelet Count 134 K/mcL (140-400); Red Cell Distribution Width 12.5 % (11.5-14.5); White Blood Count 7.7 K/mcL (4.3-11.1)
[2021-10-28 07:13] LABS: INR 1.3; Prothrombin Time 14.4 Seconds (9.4-12.1)
[2021-10-28 07:29] LABS: Alanine Aminotransferase 12 Units/L (7-52); Albumin 3.4 g/dL (3.5-5.7); Albumin/Globulin Ratio 1.1 (1.1-2.2); Alkaline Phosphatase 52 Units/L (34-104); Aspartate Amino Transferase 13 Units/L (13-39); BUN/Creatinine Ratio 25 (6-26); Bilirubin,Total 0.5 mg/dL (0.3-1.0); Blood Urea Nitrogen 25 mg/dL (8-23); Calcium 8.9 mg/dL (8.6-10.3); Carbon Dioxide 24 mEq/L (23-29); Chloride 106 mEq/L (98-107); Cholesterol 145 mg/dL (< 200); Globulin 3.2 g/dL (2.4-3.5); Glucose 116 mg/dL (70-105); HDL Cholesterol 48 mg/dL (40-59); LDL Cholesterol,Calculated 77 mg/dL (< 100); Osmolality,Calculated 291 (280-300); Phosphorous 2.9 mg/dL (2.7-4.5); Potassium 4.3 mEq/L (3.5-5.1); Sodium 138 mEq/L (136-145); Total Protein 6.6 g/dL (6.4-8.9); Triglycerides 100 mg/dL (< 150); Troponin I < 0.03 ng/mL (< 0.04); eGFR For African Americans > 60 (> 60); eGFR For Non-African Americans 54 (> 60)
[2021-10-28] MEDS: Thiamine (B-1) 100 MG in 0.9 % Sodium Chloride 50 ML IVPB SCH (08:21)
[2021-10-28] MEDS ORDERED: Metoprolol XL (24 HR) Succ 50 MG TAB.ER.24H PO SCH (09:00)
[2021-10-28] MEDS ORDERED: Aspirin 81 MG TAB.CHEW PO SCH (09:00)
[2021-10-28] MEDS ORDERED: Gabapentin 300 MG CAPSULE PO SCH (09:00)
[2021-10-28] MEDS ORDERED: Isosorbide MONOnitrate (24 HR) 30 MG TAB.ER.24H PO SCH (09:00)
[2021-10-28 09:45] LABS: Estimated Average Glucose 146 mg/dl; Hemoglobin A1C 6.7 %
[2021-10-28 10:16] VITALS: BP 144/72; PULSE 67; TEMP 98.1; O2SAT 91
== END 2021-10-28 11:29 | disposition home or self-care (01) ==
LOC: EMEROOARM 10:59 → 3BNU 10:59
PROVIDERS: ADMIT General Practice; ATTEND General Practice